=== PATIENT | male | born 1965 | race Hispanic/Latino ===

== ENCOUNTER → 2021-09-03 | Day surgery (SDC) | payer BC ==
[~2021-09-03] MED LIST: ATORVASTATIN CA10 MG PO; FENTANYL CITRATE/PF 100MCG/2 ML INJ ONE; LIDOCAINE HCL 2% LOCAL INJ 5 ML SDV VIAL INJ ONE; LOTREL PO; MIDAZOLAM HCL 2 MG/2 ML VIAL ONE; PROPOFOL IV EMULSION 10 MG/ML 20 ML VIAL ONE; ZYRTEC-D TABLE1 EACH PO
[2021-09-03 09:15] VITALS: BP 103/70
== END | disposition home or self-care (01) ==
LOC: OR 06:18
PROVIDERS: ATTEND Internal Medicine Gastroenterology
DX: Z12.11 Encounter for screening for malignant neoplasm of colon (principal); D12.2 Benign neoplasm of ascending colon; D12.3 Benign neoplasm of transverse colon; K64.8 Other hemorrhoids; Z71.3 Dietary counseling and surveillance; I10 Essential (primary) hypertension; E66.3 Overweight; Z01.810 Encounter for preprocedural cardiovascular examination; Z01.812 Encounter for preprocedural laboratory examination; Z20.822 Contact with and (suspected) exposure to COVID-19; Z79.899 Other long term (current) drug therapy; Z68.29 Body mass index [BMI] 29.0-29.9, adult
CPT/HCPCS: 45385; 93005; J2001; J2250; J2704; J3010; U0002; 45378